=== PATIENT | female | born 1990 | race Caucasian/White ===

== ENCOUNTER 2017-09-06 05:33 | Inpatient (IN) | payer OTHER ==
[2017-08-30 15:32] VITALS: BMI 31.0
--- NOTE | 2017-08-30 15:55 | PAT Medication Instructions ---
Service Date Aug 30, 2017. Current Home Medication List Multivit/Min/Iron/Fol Ac/Pren ( Vitamin), 1 TAB PO DAILY Medication Instructions For Your Scheduled Surgery - Take the following medications as scheduled the night before surgery: Multivit/Min/Iron/Fol Ac/Pren ( Vitamin), 1 TAB PO DAILY NOTHING TO EAT OR DRINK AFTER MIDNIGHT If you have any questions please call us at [phone] or [phone] or [phone]
[2017-08-30 16:18] LABS: BASO % 0.1 %; BASO ABS # 0.01 K/uL (0-0.2); EOS % 1.3 %; EOS ABS # 0.11 K/uL (0-0.5); HEMATOCRIT 34.7 % (37-47); HEMOGLOBIN 11.7 g/dL (12.0-16.0); IG# 0.05 K/uL (0.00-0.02); LYMPH % 22.9 %; LYMPH ABS # 1.89 K/uL (1.2-3.4); MEAN CELL VOLUME 84.8 fL (80-100); MEAN CORPUSCULAR HEMOGLOBIN 28.6 pg (25-34); MEAN CORPUSCULAR HGB CONC 33.7 g/dl (32-36); MEAN PLATELET VOLUME 11.4 fL (7.4-10.4); MONO % 9.1 %; MONO ABS # 0.75 K/uL (0.11-0.59); NEUT ABS # 5.44 K/uL (1.4-6.5); PLATELET COUNT 151 K/uL (130-400); RED CELL DISTRIBUTION WIDTH CV 13.7 % (11.5-14.5); RED CELL DISTRIBUTION WIDTH SD 42.2 fL (36.4-46.3); WHITE BLOOD COUNT 8.25 K/uL (4.8-10.8)
--- NOTE | 2017-09-03 08:14 | HISTORY & PHYSICAL EXAMINATION ---
DATE OF ADMISSION: 09/06/2017 HISTORY OF PRESENT ILLNESS: Pamela is . This is her second term . She has 1 prior section and she is scheduled for repeat. Her due date is 09/11/2017 and her scheduled date is 09/06/2017, thus she will be up to 39 weeks. This has been uncomplicated. Her prior she had a section. At that time was an attempt at forceps and when she had this was a failed trial and then she had a and ultimately this resulted in uterine extension at the time of her prior section. PAST MEDICAL HISTORY: She is healthy. PAST SURGICAL HISTORY: Prior and also prior appendectomy. MEDICATIONS: None. DRUG ALLERGIES: PENICILLIN. SHE STATES HE GETS A RASH WITH THIS AND FEELS UNWELL. PHYSICAL EXAMINATION: VITAL SIGNS: Stable. She is afebrile. Weight is 190.2 pounds. CHEST: Clear. CARDIOVASCULAR: Normal rate and rhythm. No audible murmur. ABDOMEN: Gravid, symphysis fundal height term. heart rate tone is 136. CERVIX: At last check was 1 cm, 50%, -2. IMPRESSION AND PLAN: Discussed Repeat section. Discussed risks including but not limited to the risks of bleeding, infection, injury to bowel, bladder, ureter, vessels, deep vein thrombosis, pulmonary embolus and harm to the baby. Discussed with prior the extension that likely not appropriate but we did review this option. All questions were answered. We will make arrangements for a low segment transverse section.
[2017-09-06] VITALS (18 sets, daily range): BP systolic 95–101; BP diastolic 57–63; PULSE 64–74; TEMP 36.5–37.3; O2SAT 93–98; Ht 167.6 cm; Wt 86.4 kg
[~2017-09-06] VITALS: Ht 167.6 cm; Wt 86.4 kg
[~2017-09-06 05:33] MED LIST: GENTAMICIN CONSULT ACTIVE PRN; PRENTAB26 PO
[2017-09-06] MEDS ORDERED: GENTAMICIN INJ 130 MG in DEXTROSE 5% 100ML 100 ML IV SCH (06:00)
[2017-09-06] MEDS ORDERED: CLINDAMYCIN IV 900 MG in DEXTROSE 5% ADD-VANTAGE 100ML IV SCH (06:00)
[2017-09-06] MEDS ORDERED: CITRIC ACID/SODIUM CITRATE 15 ML UDC PO SCH (06:00)
[2017-09-06] MEDS ORDERED: LACTATED RINGER'S 1000ML 1,000 ML IV SCH ×2 (06:00→08:36)
[2017-09-06 06:07] LABS: BASO % 0.3 %; BASO ABS # 0.02 K/uL (0-0.2); EOS % 1.3 %; EOS ABS # 0.09 K/uL (0-0.5); HEMATOCRIT 34.9 % (37-47); HEMOGLOBIN 11.9 g/dL (12.0-16.0); IG# 0.03 K/uL (0.00-0.02); LYMPH % 28.8 %; LYMPH ABS # 1.95 K/uL (1.2-3.4); MEAN CELL VOLUME 83.7 fL (80-100); MEAN CORPUSCULAR HEMOGLOBIN 28.5 pg (25-34); MEAN PLATELET VOLUME 11.1 fL (7.4-10.4); MONO % 9.9 %; MONO ABS # 0.67 K/uL (0.11-0.59); NEUT % 59.3 %; NEUT ABS # 4.01 K/uL (1.4-6.5); PLATELET COUNT 143 K/uL (130-400); RED CELL DISTRIBUTION WIDTH CV 13.9 % (11.5-14.5); RED CELL DISTRIBUTION WIDTH SD 41.5 fL (36.4-46.3); WHITE BLOOD COUNT 6.77 K/uL (4.8-10.8)
[2017-09-06 06:50] LABS: MEAN CORPUSCULAR HGB CONC 34.1 g/dl (32-36)
--- NOTE | 2017-09-06 07:15 | History & Physical Bridge Note ---
H&P Re-Evaluation Bridge Note: I have examined the patient, reviewed the History & Physical and in the interval since the performance of the History & Physical I have noted the following changes of clinical significance: No changes noted
[2017-09-06] MEDS ORDERED: FENTANYL CITRATE INJ 50 MCG/1 ML 2 ML VIAL ONE (07:27)
[2017-09-06] MEDS ORDERED: MoRPHine SULFATE PF 1 MG/ML 10 ML AMP/VIAL ONE (07:27)
[2017-09-06] MEDS ORDERED: OXYTOCIN INJ 10 UNITS/ML VIAL ONE (07:33)
[2017-09-06] MEDS ORDERED: ONDANSETRON INJ 2 MG/ML 2 ML VIAL ONE (07:33)
[2017-09-06] MEDS ORDERED: PHENYLEPHRINE HCL INJ 10 MG/ML VIAL ONE (07:33)
[2017-09-06] MEDS ORDERED: LACTATED RINGER'S 1000ML 500 ML IV PRN (08:20)
[2017-09-06] MEDS ORDERED: NALOXONE HCL INJ 0.08 MG in SYRINGE 1.8 ML IV PRN (08:20)
[2017-09-06] MEDS ORDERED: NALOXONE HCL INJ 1 MG in SODIUM CHLORIDE 0.9% 1000ML 1,000 ML IV PRN (08:20)
[2017-09-06] MEDS ORDERED: SODIUM CHLORIDE 0.9% 1000ML 1,000 ML IV PRN (08:20)
[2017-09-06] MEDS ORDERED: ONDANSETRON INJ 2 MG/ML 2 ML VIAL IV PRN (08:30)
[2017-09-06] MEDS ORDERED: MEPERIDINE HCL 25 MG/ML CARP IV PRN (08:30)
[2017-09-06] MEDS ORDERED: NO NARCOTICS OR SEDATIVES SCH (08:30)
[2017-09-06] MEDS ORDERED: DiphenhydrAMINE HCL 50 MG/ML VIAL IV PRN (08:30)
[2017-09-06] MEDS ORDERED: NALBUPHINE HCL INJ 10 MG/ML AMP IV PRN (08:30)
[2017-09-06] MEDS ORDERED: MoRPHine SULFATE 2 MG/ML CARP IV PRN (08:30)
[2017-09-06] MEDS ORDERED: NALOXONE HCL 0.4 MG/1 ML VIAL/CARP IV PRN (08:30)
[2017-09-06] MEDS ORDERED: EpHEDrine SULFATE INJ 50 MG/ML AMP IV PRN (08:30)
[2017-09-06] MEDS ORDERED: KETOROLAC TROMETHAMINE 30 MG/ML VIAL IV. PRN ×2 (08:30→08:45)
[2017-09-06] MEDS ORDERED: MoRPHine SULFATE PF 1 MG/ML 10 ML AMP/VIAL EPI PRN (08:30)
--- NOTE | 2017-09-06 08:36 | [facility] Post Operative Brief Note ---
Immediate Operative Summary Operative Date Sep 06, 2017. Pre-Operative Diagnosis Term Repeat Caesarean Section Post-Operative Diagnosis Term Repeat Caesarean Section Procedure(s) Performed Term Repeat Caesarean Section for living female child at [address] Kruger Pier Master Surgeon(s) Dr. Foy Estimated Blood Loss 600 EBL Findings Consistent with Post-Op Diagnosis Specimens Placenta- hold cord blood arterial/venous cord gases Drains Richardson Anesthesia Type MAC Spinal Regional Complication(s) none Disposition Accompanied Pt To Recover: no Disposition: L&D
[2017-09-06] MEDS ORDERED: OXYCODONE/ACETAMINOPHEN 5-325 TAB PO PRN (08:45)
[2017-09-06] MEDS ORDERED: BENZOCAINE 20% AER SPR 82.5 GM CAN EXT PRN (08:45)
[2017-09-06] MEDS ORDERED: LANOLIN OINT EXT PRN (08:45)
[2017-09-06] MEDS ORDERED: MAGNESIUM HYDROXIDE SUSP 30 ML UDC PO PRN (08:45)
[2017-09-06] MEDS ORDERED: SENNA 8.6 MG TAB PO PRN (08:45)
[2017-09-06] MEDS ORDERED: HYDROCORTISONE ACETATE 25 MG SUPP PR PRN (08:45)
[2017-09-06] MEDS ORDERED: SUPERCREAM 0.870 % 15GM JAR EXT PRN (08:45)
[2017-09-06] MEDS ORDERED: PROMETHAZINE HCL INJ 25 MG in SODIUM CHLORIDE 0.9% 50ML 50 ML IV PRN (08:45)
[2017-09-06] MEDS: SIMETHICONE 80 MG CHEW PO SCH ×4 (09:00→20:34)
[2017-09-06] MEDS: OXYTOCIN INJ 20 UNITS in LACTATED RINGER'S 1000ML 1,000 ML IV SCH ×2 (09:14→16:55)
--- NOTE | 2017-09-06 09:31 | OPERATIVE REPORT ---
DATE OF OPERATION: 09/06/2017 PREOPERATIVE DIAGNOSIS: Term repeat low transverse section. POSTOPERATIVE DIAGNOSIS: Same. PROCEDURE: Repeat low segment transverse section. SURGEON: Dr. Kruger. CRM MARKETING ANALYST: Dr. Katy Foy. ESTIMATED BLOOD LOSS: 600 mL FINDINGS: Consistent with postoperative diagnosis. SPECIMENS: Placenta, cord blood. DRAINS: Richardson catheter. ANESTHETIC: Spinal. COMPLICATIONS: None. DISPOSITION: Labor and delivery. DESCRIPTION OF PROCEDURE: Pamela was given a spinal anesthetic, prepped and draped in supine position with a leftward tilt. Richardson catheter placed by nursing. Pickups with teeth were used to test the incision. Full timeout performed and IV antibiotics given preoperatively. Scalpel used to cut on the inferior edge of her keloid incision and the Pfannenstiel incision, dissecting down through subcutaneous fat to the fascia in the midline. Fascia dissected laterally with curved Sierra scissors. Fascia released superiorly and inferiorly with curved Mayos and then rectus muscle split and peritoneal cavity entered in a superior location. Peritoneal cavity opening enlarged to allow exposure. Bladder retractor placed. Metzenbaums used to dissect away the bladder flap. Bladder retractor repositioned. Scalpel used to make a low transverse incision on the uterus. Entry was done bluntly with the filteration operator's finger and then incision extended with the filteration operator's finger in the usual fashion. Fluid was clear. Baby's head was flexed and then pressure on the abdomen allowed delivery of the baby, there was no nuchal cord. Mouth and then nares were suctioned. Baby was delivered by gentle traction. No excessive force was used. Live vigorous female . Cord gases obtained by first clamping the cord and then cord blood obtained. Placenta removed. IV Pitocin started. Uterus exteriorized. We ensured all placental material was removed with a moist lap and then uterus closed in a running 0 Monocryl locked and a second reinforcing nonlocked 0 Monocryl layer, thus a 2-layer closure. At this stage, hemostasis was excellent. After generous irrigation and suction of the cul-de-sac and anterior bladder flap regions, hemostasis was excellent. Uterus had been placed back in the peritoneal cavity. Hemostasis was excellent. We injected the muscle layer with hemostatic and then fascia was closed with 0 Vicryl, subcutaneous fat irrigated and closed with 3-0 Vicryl. We did excise the keloid incision and then 4-0 subcuticular Monocryl closure and Steri-Strips. Sponge and instrument counts correct and urine was clear at the end of the procedure. I attest to the content of the Intraoperative Record and any orders documented therein. Any exception s are noted below.
--- NOTE | 2017-09-06 11:12 | Anesthesiology Progress Note ---
Anesthesia Post Op Note Date & Time Sep 06, 2017 at 11:12 Notes Mental Status: alert / awake / arousable, participated in evaluation Pt Amnestic to Procedure: Yes Nausea / Vomiting: adequately controlled Pain: adequately controlled Airway Patency, RR, SpO2: stable & adequate BP & HR: stable & adequate Hydration State: stable & adequate Neuraxial Anesthesia: was administered, sensory block is resolving Anesthetic Complications: no major complications apparent
--- NOTE | 2017-09-06 11:19 | Discharge Instructions ---
Discharge Instructions Date of Service Sep 06, 2017. Admission Reason for Admission: Previous Section Discharge Discharge Diagnosis / Problem: Discharge Goals Goal(s): Routine recovery after Medications Continue Dispensed Medications: supercream, dermaplast, tucks, lansinoh Activity Recommendations Activity Limitations: per Instructions/Follow-up section . Instructions / Follow-Up Instructions / Follow-Up ACTIVITY RECOMMENDATIONS: * Gradual return to full activity over the next 2-3 weeks. * No lifting - nothing heavier than baby over the next 2-3 weeks. * Do not engage in vigorous exercise, sexual activity or sports until cleared by your physician. * Do not drive or operate any motorized equipment until cleared by your physician. * You may shower/bathe daily. MEDICATIONS: For discomfort or pain, you may use Acetaminophen (Tylenol), Ibuprofen (Advil), or Naproxen (Aleve) following the package directions. For constipation you may use Colace following the package directions. BREAST CARE: If you are not breast feeding: * Wear a supportive bra 24 hours a day for one to two weeks. * Avoid stimulating your breasts and nipples as much as possible during the first few weeks after delivery. * When taking a shower, have the warm water hit your back, not breasts. * When your breasts feel full, apply ice packs. Usually three to four times a day helps ease the discomfort. * Take a mild pain medication (Tylenol / Motrin) when you are uncomfortable. If breast feeding: * Use breast milk to lubricate nipples. Lansinoh cream may be used for sore nipples. You do not need to remove cream prior to breast feeding. If using a different brand of cream, check the label for directions regarding removal of cream prior to nursing. * Wear a supportive bra. * If having problems with breasts or breast feeding, call a cosmetic consultant or your health care provider. SPECIAL CARE INSTRUCTIONS: When you are discharged from the hospital, it is important for you to follow the instructions listed below: * During the first week at home, you should be able to care for yourself and your baby. In addition, the usual light household activities are encouraged. * Limit your activities to the way you feel. Do not try to clean the house or move furniture. Be sensible. * If you actively engage in sports and have done so up until the time of your delivery, you may resume these activities as soon as you feel able. This may take up to one month or even longer. Use good judgment. * Continue to take your vitamins for at least six weeks after the of your baby. * Your diet need not be limited unless you were on a special diet before your delivery. Breast-feeding mothers need around 2500 calories per day and at least 64-80 ounces of fluid per day (8 to 10 glasses). * You should eat foods from the four major food groups. Crash diets or fad diets are to be avoided. Eating lean meats, fresh fruits and vegetables, low-fat dairy products, high fiber foods and a regular exercise program, will help you get back to your pre- weight without putting your health at risk. * Constipation is sometimes a problem after delivery. Take a mild laxative as needed. If breast feeding, Milk of Magnesia is acceptable to use. You may use a suppository or Fleets enema. * A daily shower or tub bath is suggested. Wash incision daily with warm soapy water and pat dry. It doesn't need to be covered unless drainage is present. * A bloody vaginal discharge will usually continue until around four weeks . A small amount of bleeding may continue for as long as six weeks. Vaginal discharge changes from the bright red bleeding after delivery to pink then brownish and finally yellowish-pink before becoming white and disappearing. * Bleeding may increase with activity. Your first period may come in 4-8 weeks. If you are breast feeding, your period may be delayed even longer. * [place] (sex) can begin whenever both you and your partner feel comfortable and do not have any form of genital infection. It is recommended that you wait at least six weeks for internal and external healing to occur. If you have questions, please talk to your health care practitioner. A condom should be used to prevent infection and . * Foreplay, gentle intercourse and lubrication is very important the first several times to prevent pain. A water-based lubricant such as K-Y jelly or Astroglide may be used. * If you have RH negative blood and your baby is RH positive, you will receive RHOGAM by injection prior to discharge. The nurse will give you a card to keep with you that has the date and place that you received RHOGAM after delivery. * During your care, you had a Rubella screen done to check for the presence of rubella antibodies in your blood. If your test was negative, you will receive a Rubella vaccine prior to discharge. This vaccine may cause a fever, soreness at the injection site and flu-like symptoms. If these symptoms persist, notify your health care practitioner. is not advised for one month after a Rubella vaccine. * Verbalizes understanding of car seat law as reviewed with patient nursing. * Car Seat hand-out given and reviewed with patient by nursing. * Shaken baby information reviewed with patient by nursing. Call you doctor if: * Heavy bleeding (saturating several pads an hour) or passing clots the size of your fist. * A fever >101 degrees F (38.3 degrees C) on two occasions four hours apart and /or chills. * Unusual pain in the pelvic or vaginal areas. * Call the doctor for any increased redness, drainage or swelling around the incision and any pain unrelieved by prescribed pain medication. * "Baby Blues" lasting longer than two weeks. If you have any questions or concerns, call your health care practitioner at . FOLLOW UP VISIT: * Please call the office at to schedule a 6 week examination. It is important you keep this appointment. It is important for you to make arrangements for either yearly or twice yearly check-ups thereafter. Current Hospital Diet Patient's current hospital diet: Discharge Diet Recommended Diet: Regular Diet Procedures Procedures Performed: Term Repeat Caesarean Section for living female child at 0802 Pending Studies Studies pending at discharge: no Medical Emergencies . Who to Call and When: Medical Emergencies: If at any time you feel your situation is an emergency, please call [phone] immediately. . Non-Emergent Contact Non-Emergency issues call your: Primary Care Provider . . "Provider Documentation" section prepared by Tom Wilson. . VTE Core Measure Inpt VTE Proph given/why not?: SCD's
[2017-09-06] MEDS: DOCUSATE SODIUM 100 MG CAP PO SCH (20:34)
[2017-09-07] VITALS (8 sets, daily range): BP systolic 95–105; BP diastolic 52–63; PULSE 71–79; TEMP 36.4–36.9; O2SAT 79–96
[2017-09-07] MEDS ORDERED: ONDANSETRON INJ 2 MG/ML 2 ML VIAL IV PRN (02:00)
[2017-09-07] MEDS ORDERED: MEPERIDINE HCL 50 MG/ML CARP IV PRN ×2 (02:00)
[2017-09-07] MEDS ORDERED: DiphenhydrAMINE HCL 50 MG/ML VIAL IV PRN (02:00)
[2017-09-07] MEDS ORDERED: DC INTRASPINAL MORPHINE SCH (02:00)
[2017-09-07] MEDS ORDERED: ZOLPIDEM TARTRATE 5 MG TAB PO PRN (02:00)
[2017-09-07] MEDS: IBUPROFEN 600 MG TAB PO PRN ×3 (02:23→23:34)
[2017-09-07] MEDS: OXYCODONE/ACETAMINOPHEN 5-325 TAB PO PRN ×3 (02:24→23:38)
--- NOTE | 2017-09-07 06:32 | Progress Note ---
Subjective Sep 07, 2017. Subjective conversation w/ patient (Patient seen and examined at bedside) Ambulation: limited ambulation Voiding: no voiding problems (catheter removed at 2AM - pt not voided at 6AM) Passing Gas: Yes Diet Tolerance: Regular Diet Lochia: Moderate Feeding Type: Breast Feeding Pain: 2/10, improved with analgesia Review of Systems Constitutional: No fever, No chills Respiratory: No shortness of breath Cardiac: No chest pain Breast: No breast pain Abdomen: No nausea, No vomiting Objective Vital Signs Date Time Temp Pulse Resp B/P (MAP) Pulse Ox O2 Delivery O2 Flow Rate FiO2 09/07/17 04:30 36.8 71 18 95/59 (71) Room Air 09/07/17 02:00 18 94 09/07/17 01:00 18 95 09/07/17 00:00 18 93 09/06/17 23:55 93 Room Air 09/06/17 23:55 37.3 72 18 98/58 (71) 93 Room Air 09/06/17 23:00 18 97 09/06/17 22:00 18 98 09/06/17 21:00 18 97 09/06/17 20:37 36.5 74 18 101/59 (73) 97 Room Air 09/06/17 20:00 18 97 09/06/17 19:00 18 98 09/06/17 18:00 16 95 Room Air 09/06/17 18:00 16 95 09/06/17 17:00 16 96 09/06/17 16:39 16 96 09/06/17 16:30 16 96 09/06/17 16:21 36.9 64 16 98/59 (72) 96 Room Air 09/06/17 16:00 96 Room Air 09/06/17 16:00 16 96 09/06/17 14:25 18 96 09/06/17 13:25 18 96 09/06/17 12:40 36.9 74 16 95/57 (70) 96 Room Air 09/06/17 12:25 16 96 09/06/17 11:25 96 Room Air 09/06/17 11:25 36.7 67 18 101/63 (76) 96 Room Air 09/06/17 11:25 96 Room Air 09/06/17 11:25 18 96 Physical Exam General Appearance: WELL-APPEARING, WD/WN, NO APPARENT DISTRESS Respiratory/Chest: lungs clear, normal breath sounds Cardiovascular: regular rate, rhythm Abdomen: soft Fundus: Firm, Tender, Relation to Umbilicus (1 below) Incision Description: Clean, Dry & Intact Extremities: no calf tenderness Laboratory Results Last 24 Hours Test 09/07/17 06:00 Medications Current Inpatient Medications Medications (Trade) Dose Ordered Sig/Kaden Route Start Time Stop Time Status Last Admin Dose Admin Oxytocin 20 units/ Lactated Ringer's 1,002 ml @ 125 mls/hr Q8H1M IV 09/06/17 09:00 10/06/17 08:59 09/06/17 16:55 125 MLS/HR Lactated Ringer's 1,000 ml @ 125 mls/hr Q8H IV 09/06/17 08:36 10/06/17 08:35 Ketorolac Tromethamine (Toradol Inj) 30 mg Q6H PRN IV. 09/06/17 08:45 09/11/17 08:44 Meperidine HCl (Demerol Inj) 50 mg Q4H PRN IV 09/07/17 02:00 09/21/17 01:59 Meperidine HCl (Demerol Inj) 75 mg Q4H PRN IV 09/07/17 02:00 09/21/17 01:59 Oxycodone/ Acetaminophen (Percocet 5-325mg Tab) `1-2 tabs for pain 1 tab ... Q4H PRN PO 09/07/17 02:00 09/21/17 01:59 09/07/17 02:24 2 TAB Ibuprofen (Motrin Tab) 600 mg Q4H PRN PO 09/06/17 08:45 10/06/17 08:44 09/07/17 02:23 600 MG Promethazine HCl 25 mg/Sodium Chloride 51 ml @ 204 mls/hr Q4H PRN IV 09/06/17 08:45 10/06/17 08:44 Ondansetron HCl (Zofran Inj) 4 mg Q4H PRN IV 09/07/17 02:00 10/07/17 01:59 Prenat Multivit/ Gis Database Administrator/Iron/Folic Ac ( Vitamin Tab) 1 tab DAILY PO 09/07/17 08:00 10/07/17 07:59 Bisacodyl (Dulcolax Tab) 5 mg HS ONCE PO 09/07/17 22:00 09/07/17 22:01 Bisacodyl (Dulcolax Supp) 10 mg PRN PRN VT 09/08/17 22:45 10/08/17 22:44 Docusate Sodium (coLACE CAP) 100 mg BID PO 09/06/17 20:00 10/06/17 19:59 09/06/17 20:34 100 MG Magnesium Hydroxide (Milk Of Magnesia Susp) 30 ml HS PRN PO 09/06/17 08:45 10/06/17 08:44 Cocaine HCl (Supercream 0.870% Cr) BID PRN EXT 09/06/17 08:45 09/20/17 08:44 Lanolin (Lanolin Oint) PRN PRN EXT 09/06/17 08:45 10/06/17 08:44 Hydrocortisone Acetate (Anusol Hc Supp) 25 mg BID PRN VT 09/06/17 08:45 10/06/17 08:44 Benzocaine (Dermoplast Aero Spr) 1 appln PRN PRN EXT 09/06/17 08:45 10/06/17 08:44 Zolpidem Tartrate (Ambien Tab) 5 mg HSZ PRN PO 09/07/17 02:00 10/07/17 01:59 Simethicone (Mylicon Chew Tab) 80 mg QID PO 09/06/17 09:00 10/06/17 08:59 09/06/17 20:34 80 MG Diphenhydramine HCl (Benadryl Cap) 25 mg QID PRN PO 09/07/17 02:00 10/07/17 01:59 Diphenhydramine HCl (Benadryl Inj) 25 mg QID PRN IV 09/07/17 02:00 10/07/17 01:59 Senna (Senokot Tab) 17.2 mg HS PRN PO 09/06/17 08:45 10/06/17 08:44 Assessment and Plan Post-Op Day#: 1 Continue Routine Care: 27 year old s/p elective repeat day 1 - pt doing well clinically - O+, Rubella immune, GBS -ve - vitals reviewed and wnl - Hgb 11.9, will assess today's level when labs available - continue to encourage ambulation, and analgesia prn Resident Physician Supervision Note: I interviewed and examined the patient. Discussed with Dr. Santos and agree with findings and plan as documented in the note. Any exceptions or clarifications are listed here: [None] Documented By: Bam Kruger Resident Tracking Resident Involvement: Resident Care Provided Care Provided: OB Delivery
[2017-09-07 07:21] LABS: BASO % 0.1 %; BASO ABS # 0.01 K/uL (0-0.2); EOS % 0.8 %; EOS ABS # 0.07 K/uL (0-0.5); HEMATOCRIT 31.3 % (37-47); HEMOGLOBIN 10.4 g/dL (12.0-16.0); IG# 0.02 K/uL (0.00-0.02); LYMPH % 19.7 %; LYMPH ABS # 1.69 K/uL (1.2-3.4); MEAN CELL VOLUME 84.8 fL (80-100); MEAN CORPUSCULAR HEMOGLOBIN 28.2 pg (25-34); MEAN CORPUSCULAR HGB CONC 33.2 g/dl (32-36); MEAN PLATELET VOLUME 11.7 fL (7.4-10.4); MONO % 10.4 %; MONO ABS # 0.89 K/uL (0.11-0.59); NEUT % 68.8 %; NEUT ABS # 5.88 K/uL (1.4-6.5); PLATELET COUNT 117 K/uL (130-400); RED CELL DISTRIBUTION WIDTH SD 42.6 fL (36.4-46.3); WHITE BLOOD COUNT 8.56 K/uL (4.8-10.8)
[2017-09-07] MEDS: DOCUSATE SODIUM 100 MG CAP PO SCH ×2 (08:14→20:08)
[2017-09-07] MEDS: SIMETHICONE 80 MG CHEW PO SCH ×4 (08:14→20:08)
[2017-09-07] MEDS: PRENATAL VITAMIN TAB PO SCH (08:14)
[2017-09-07] MEDS ORDERED: BISACODYL 5 MG TABEC PO ONE (22:00)
--- NOTE | 2017-09-08 06:19 | Progress Note ---
Subjective Sep 08, 2017. Subjective conversation w/ patient (Patient seen and examined at bedside) Ambulation: ambulating normally Voiding: no voiding problems Passing Gas: Yes Diet Tolerance: Regular Diet Lochia: Moderate Feeding Type: Breast Feeding Pain: 2/10, localized to incision and improved w/analgesia Review of Systems Constitutional: No fever Respiratory: No shortness of breath Cardiac: No chest pain Abdomen: No pain Female : No dysuria Objective Vital Signs Date Time Temp Pulse Resp B/P (MAP) Pulse Ox O2 Delivery O2 Flow Rate FiO2 09/07/17 23:35 36.5 18 105/52 (69) 96 Room Air 09/07/17 23:35 96 Room Air 09/07/17 20:00 79 20 100/54 (69) 79 Room Air 09/07/17 16:55 36.9 76 20 98/59 (72) 09/07/17 08:20 Room Air 09/07/17 08:20 36.4 78 20 98/63 (75) Physical Exam General Appearance: WELL-APPEARING, WD/WN, NO APPARENT DISTRESS Respiratory/Chest: lungs clear, normal breath sounds Cardiovascular: regular rate, rhythm Abdomen: non tender Fundus: Firm, Tender, Relation to Umbilicus (1 below) Incision Description: Clean, Dry & Intact Extremities: no calf tenderness Laboratory Results Last 24 Hours Test 09/07/17 06:38 09/08/17 06:00 White Blood Count 8.56 K/uL Red Blood Count 3.69 M/uL Hemoglobin 10.4 g/dL Hematocrit 31.3 % Mean Corpuscular Volume 84.8 fL Mean Corpuscular Hemoglobin 28.2 pg Mean Corpuscular Hemoglobin Concent 33.2 g/dl Platelet Count 117 K/uL Mean Platelet Volume 11.7 fL Neutrophils (%) (Auto) 68.8 % Lymphocytes (%) (Auto) 19.7 % Monocytes (%) (Auto) 10.4 % Eosinophils (%) (Auto) 0.8 % Basophils (%) (Auto) 0.1 % Neutrophils # (Auto) 5.88 K/uL Lymphocytes # (Auto) 1.69 K/uL Monocytes # (Auto) 0.89 K/uL Eosinophils # (Auto) 0.07 K/uL Basophils # (Auto) 0.01 K/uL RDW Standard Deviation 42.6 fL RDW Coefficient of Variation 14.0 % Immature Granulocyte % (Auto) 0.2 % Immature Granulocyte # (Auto) 0.02 K/uL Medications Current Inpatient Medications Medications (Trade) Dose Ordered Sig/Kaden Route Start Time Stop Time Status Last Admin Dose Admin Oxytocin 20 units/ Lactated Ringer's 1,002 ml @ 125 mls/hr Q8H1M IV 09/06/17 09:00 10/06/17 08:59 09/06/17 16:55 125 MLS/HR Lactated Ringer's 1,000 ml @ 125 mls/hr Q8H IV 09/06/17 08:36 10/06/17 08:35 Ketorolac Tromethamine (Toradol Inj) 30 mg Q6H PRN IV. 09/06/17 08:45 09/11/17 08:44 Meperidine HCl (Demerol Inj) 50 mg Q4H PRN IV 09/07/17 02:00 09/21/17 01:59 Meperidine HCl (Demerol Inj) 75 mg Q4H PRN IV 09/07/17 02:00 09/21/17 01:59 Oxycodone/ Acetaminophen (Percocet 5-325mg Tab) `1-2 tabs for pain 1 tab ... Q4H PRN PO 09/07/17 02:00 09/21/17 01:59 09/07/17 23:38 1 TAB Ibuprofen (Motrin Tab) 600 mg Q4H PRN PO 09/06/17 08:45 10/06/17 08:44 09/07/17 23:34 600 MG Promethazine HCl 25 mg/Sodium Chloride 51 ml @ 204 mls/hr Q4H PRN IV 09/06/17 08:45 10/06/17 08:44 Ondansetron HCl (Zofran Inj) 4 mg Q4H PRN IV 09/07/17 02:00 10/07/17 01:59 Prenat Multivit/ [place]/Iron/Folic Ac ( Vitamin Tab) 1 tab DAILY PO 09/07/17 08:00 10/07/17 07:59 09/07/17 08:14 1 TAB Bisacodyl (Dulcolax Supp) 10 mg PRN PRN CO 09/08/17 22:45 10/08/17 22:44 Docusate Sodium (coLACE CAP) 100 mg BID PO 09/06/17 20:00 10/06/17 19:59 09/07/17 20:08 100 MG Magnesium Hydroxide (Milk Of Magnesia Susp) 30 ml HS PRN PO 09/06/17 08:45 10/06/17 08:44 Cocaine HCl (Supercream 0.870% Cr) BID PRN EXT 09/06/17 08:45 09/20/17 08:44 Lanolin (Lanolin Oint) PRN PRN EXT 09/06/17 08:45 10/06/17 08:44 Hydrocortisone Acetate (Anusol Hc Supp) 25 mg BID PRN CO 09/06/17 08:45 10/06/17 08:44 Benzocaine (Dermoplast Aero Spr) 1 appln PRN PRN EXT 09/06/17 08:45 10/06/17 08:44 Zolpidem Tartrate (Ambien Tab) 5 mg HSZ PRN PO 09/07/17 02:00 10/07/17 01:59 Simethicone (Mylicon Chew Tab) 80 mg QID PO 09/06/17 09:00 10/06/17 08:59 09/07/17 20:08 80 MG Diphenhydramine HCl (Benadryl Cap) 25 mg QID PRN PO 09/07/17 02:00 10/07/17 01:59 Diphenhydramine HCl (Benadryl Inj) 25 mg QID PRN IV 09/07/17 02:00 10/07/17 01:59 Senna (Senokot Tab) 17.2 mg HS PRN PO 09/06/17 08:45 10/06/17 08:44 Assessment and Plan Post-Op Day#: 2 Continue Routine Care: 27 year old s/p elective repeat day 2 - pt doing well clinically - O+, Rubella immune, GBS -ve - vitals reviewed and wnl - Hgb 11.7 -> 10.4 - continue to encourage ambulation, and analgesia prn Resident Physician Supervision Note: I interviewed and examined the patient. Discussed with Dr. Wilson and agree with findings and plan as documented in the note. Any exceptions or clarifications are listed here: [None] Documented By: Nasra Black Resident Tracking Resident Involvement: Resident Care Provided Care Provided: OB Delivery
[2017-09-08 07:25] VITALS: BP 102/65; PULSE 78; TEMP 37; O2SAT 97
[2017-09-08 07:58] LABS: HEMATOCRIT 31.7 % (37-47); HEMOGLOBIN 10.6 g/dL (12.0-16.0)
[2017-09-08] MEDS: DOCUSATE SODIUM 100 MG CAP PO SCH (08:09)
[2017-09-08] MEDS: SIMETHICONE 80 MG CHEW PO SCH ×2 (08:10→12:34)
[2017-09-08] MEDS: PRENATAL VITAMIN TAB PO SCH (08:11)
[2017-09-08] MEDS: IBUPROFEN 600 MG TAB PO PRN ×2 (08:12→15:10)
[2017-09-08] MEDS: OXYCODONE/ACETAMINOPHEN 5-325 TAB PO PRN ×2 (08:13→15:10)
[2017-09-08] MEDS ORDERED: MTR600X PO (14:33)
[2017-09-08] MEDS ORDERED: OXYC-57 PO (14:33)
--- NOTE | 2017-09-08 14:35 | Progress Note ---
Progress Note Date of Service Sep 08, 2017. Progress Note Patient doing well and requests discharge per nurse. she was apparently wanting this discharge this am but peds was not ready to let baby go but now they are. She was checked on pa pdmp and no issues identified.
[2017-09-08 15:30] VITALS: BP_DIAS 65; PULSE 78; TEMP 37
[2017-09-08] MEDS ORDERED: BISACODYL 10 MG SUPP PR PRN (22:45)
== END 2017-09-08 15:47 | disposition home or self-care (01) | DRG 766 ==
LOC: C.LD 05:33 → EDSTATUS 07:30 → C.OBG 11:42
PROVIDERS: ADMIT Obstetrics & Gynecology; ATTEND Obstetrics & Gynecology
PROC: 10D00Z1 Extraction of Products of Conception, Low, Open Approach (ICD-10-PCS; principal; 2017-09-06 07:30)
DX: O34.219 Maternal care for unspecified type scar from previous cesarean delivery (principal); Z3A.39 39 weeks gestation of pregnancy; Z37.0 Single live birth

== ENCOUNTER 2019-04-24 07:57 | Inpatient (IN) ==
--- NOTE | 2019-04-21 08:46 | History & Physical Report ---
Date of Service April 21, 2019 2 prior sections and requests repeat. prior extension, not a candidate. Uncomplicated poregnancy Assessment & Plan (1) History of : Repeat section. The patient was counseled to the nature of the procedure including alternatives such as labor. Risks were discussed including bleeding infection injury to bowel bladder ureter vessels and even baby. The risks of internal organ injury were discussed as being higher with prior sections. Deep Vein Thrombosis, pulmonary embolus and breakdown of the incision discussed. Deep vein thrombosis pulmonary embolus hernia and failure of the incision to heal were discussed Patient verbalized understanding of this and was given ample time to ask questions History of Present Illness Primary Care Provider: Stefano Crow, JOLEEN, CIO Allergies Allergy/AdvReac Type Severity Reaction Status Date / Time Penicillins Allergy Severe ANAPHYLAXIS Verified 04/20/19 13:12 Home Medications Home Medications Medication Instructions Recorded Confirmed Type pediatric multivitamin no.136 tab PO tab 02/21/19 04/20/19 History chewable tablet Patient History Social History Smoking Status: Never smoker Physical Exam Constitutional: WD/WN, vitals as above Respiratory: normal respiratory effort, lungs clear to auscultation Cardiovascular: RRR, no murmur, no edema Gastrointestinal (Abdomen): normal bowel sounds, soft, nontender, no hepatosplenomegaly Genitourinary: Speculum/Bimanual Exam: normal appearance of the vagina OB Exam Abdomen: + fundal height (Term), + heart tones (Pos) and + vertex
[~2019-04-24 07:57] MED LIST changes: +CITRIC ACID/SODIUM CITRATE 15 ML UDC PO SCH; +CLINDAMYCIN 900 MG in DEXTROSE 5% 50 ML IV SCH; -GENTAMICIN CONSULT ACTIVE PRN; +LACTATED RINGER'S 1,000 ML IV SCH; -PRENTAB26 PO
[2019-04-24 08:57] LABS: Basophils # (auto) 0.01 K/uL (0-0.2); Basophils % (auto) 0.1 %; Eosinophils # (auto) 0.07 K/uL (0-0.5); Hematocrit (blood only) 32.5 % (37-47); Hemoglobin 10.5 g/dL (12.0-16.0); Immature Granulocytes # (auto) 0.02 K/uL (0.00-0.02); Immature Granulocytes % (auto) 0.3 %; Lymphocytes # (auto) 1.85 K/uL (1.2-3.4); Lymphocytes % (auto) 25.4 %; Mean Corpuscular Hemoglobin 27.1 pg (25-34); Mean Platelet Volume 11.6 fL (7.4-10.4); Monocytes # (auto) 0.65 K/uL (0.11-0.59); Monocytes % (auto) 8.9 %; Neutrophils # (auto) 4.68 K/uL (1.4-6.5); Neutrophils % (auto) 64.3 %; Platelet Count 135 K/uL (130-400); RDW Coefficient of Variation 13.9 % (11.5-14.5); RDW Standard Deviation 41.7 fL (36.4-46.3); Red Blood Count 3.87 M/uL (4.2-5.4); White Blood Count 7.28 K/uL (4.8-10.8)
[2019-04-24 09:03] LABS: Mean Corpuscular Hgb Conc 32.3 g/dL (32-36)
[2019-04-24] MEDS ORDERED: LACTATED RINGER'S 1,000 ML IV ONE (09:21)
--- NOTE | 2019-04-24 09:55 | Anesthesiology Consultation ---
Date of Service April 24, 2019 Assessment & Plan Chart Review Chart Review: Acceptable Risk for Surgery and Patient NOT seen in Pre Admission Testing Consults Requested none ASA ASA2 Proposed Anesthesia Anesthesia Type: Spinal Risk / Benefits Reviewed With: PT / POA / Parent / Guardian, Accepts Plan and Informed Consent Obtained History Surgery Operation Date: 04/24/19 10:20 Proposed Procedures p Section in LD - J. Darrick Kruger MD, FACOG Height/Weight Height: 5 ft 7 in Weight: 86.183 kg Allergies Allergy/AdvReac Type Severity Reaction Status Date / Time Penicillins Allergy Severe ANAPHYLAXIS Verified 04/21/19 13:44 Medications Home Medications Medication Instructions Recorded Confirmed Last Taken PNV cmb#95-ferrous fumarate-FA 1 tab PO DAILY 04/21/19 04/24/19 04/19/19 18:00 [] Active Medications Generic Name Dose Route Start Last Admin Trade Name Freq PRN Reason Stop Dose Admin Lactated Ringer's 1,000 mls @ 999 mls/hr 04/24/19 09:21 04/24/19 09:05 Lr IV 04/24/19 10:21 999 mls/hr .Q1H1M ONE Administration NPO Date Last Intake of Fluids: 04/23/19 Time Last Intake of Fluids: 21:30 Date Last Intake of Solids: 04/23/19 Time Last Intake of Solids: 19:30 Past Medical History Medical History History of miscarriage Exercise / Class Metabolic Activity II 4-5 Yardwork/Stairs/Walk up hill Negative for chest pain or shortness of breath. Past Family History Family History Grandmother (Maternal) Lung cancer Grandfather (Paternal) Heart disease Dyslipidemia Mother Ovarian cyst Sister Ovarian cyst Father Dyslipidemia Past Surgical History Surgical History History of X 2 Nausea and vomiting after administration of anesthetic agent [place] teeth removed S/P appendectomy S/P hernia repair INGUINAL S/P wisdom tooth extraction Past Anesthesia History No Hx of Anesthesia Complications (PONV) History of PONV No Hx of Motion Sickness and History of PONV Social History Smoking Status: Never smoker Do You Dip or Chew Tobacco: No Hx Alcohol Use: Yes (when not ) Alcohol type: wine alcohol intake frequency: a few times a month Hx Substance Use: No substance use type: does not use Review of Systems Patient denies active symptoms of GERD. Patient denies numbness, tingling or weakness in lower extremities. Patient denies history of abnormal bleeding or bleeding disorder. Patient denies active use of anticoagulants other than low dose aspirin. Physical Exam Vital Signs Last Vital Signs Temp 37.0 C 04/24/19 08:03 Pulse 89 04/24/19 08:57 Resp 18 04/24/19 08:03 BP 106/59 L 04/24/19 08:57 Constitutional not obese gravid uterus ENMT Mouth: no TMJ abnormality and oral opening not small Thyromental Distance: > or= 3.5 Finger Breadths Mallampati Class: I Neck normal visual inspection; neck extension not limited Respiratory normal respiratory effort Auscultation: lungs clear to auscultation bilaterally Cardiovascular Rate/Rhythm: regular rate and regular rhythm Heart Sounds: no murmur Neurologic moves all extremities Motor/Sensory: no sensory deficit Psychiatric Orientation: alert and oriented x 3 Testing Laboratory Results 04/24/19 08:29 Blood Type O Positive 04/24/19 08:24 Antibody Screen NEGATIVE 04/24/19 08:24
[2019-04-24] MEDS: LACTATED RINGER'S 1,000 ML IV SCH (10:08)
--- NOTE | 2019-04-24 11:10 | History & Physical Bridge Note ---
Date of Service April 24, 2019 History & Physical Bridge Note I have examined the patient, reviewed the History & Physical and in the interval since the performance of the History & Physical I have noted the following changes of clinical significance: no changes noted
[2019-04-24] MEDS ORDERED: HYDROmorphone INJ 0.5 MG/0.5 ML SYR IV PRN (11:23)
[2019-04-24] MEDS ORDERED: ePHEDrine sulfate 50 MG/ML AMP IV PRN (11:23)
[2019-04-24] MEDS ORDERED: KETOROLAC 30 MG/ML VIAL IV PRN (11:23)
[2019-04-24] MEDS ORDERED: DiphenhydrAMINE HCL 50 MG/ML VIAL IV PRN (11:23)
[2019-04-24] MEDS ORDERED: NALOXONE HCL 0.08 MG in SYRINGE 1.8 ML IV PRN (11:23)
[2019-04-24] MEDS ORDERED: LACTATED RINGER'S 500 ML IV PRN (11:23)
[2019-04-24] MEDS ORDERED: ACETAMINOPHEN 1000 MG/100 ML IV IV PRN (11:23)
[2019-04-24] MEDS ORDERED: MoRPHine SULFATE PF 1 MG/ML 10 ML AMP/VIAL INT SPINAL ONE (11:23)
[2019-04-24] MEDS ORDERED: NALOXONE HCL 0.4 MG/1 ML VIAL/CARP IV PRN (11:23)
[2019-04-24] MEDS ORDERED: ONDANSETRON INJ 2 MG/ML 2 ML VIAL IV PRN (11:23)
[2019-04-24] MEDS ORDERED: NALOXONE HCL 1 MG in SODIUM CHLORIDE 0.9% 1000ML 1,000 ML IV PRN (11:23)
[2019-04-24] MEDS ORDERED: SODIUM CHLORIDE 0.9% 1000ML 1,000 ML IV SCH (11:30)
[2019-04-24] MEDS ORDERED: NO NARCOTICS OR SEDATIVES SCH (11:30)
[2019-04-24] MEDS ORDERED: DC INTRASPINAL MORPHINE SCH (11:30)
[2019-04-24] MEDS ORDERED: fentaNYL citrate 100 MCG/2 ML VIAL ONE (11:32)
[2019-04-24] MEDS ORDERED: MoRPHine SULFATE PF 1 MG/ML 10 ML AMP/VIAL ONE (11:32)
[2019-04-24] MEDS ORDERED: PHENYLEPHRINE HCL 10 MG/ML VIAL ONE (11:37)
[2019-04-24] MEDS ORDERED: ONDANSETRON INJ 2 MG/ML 2 ML VIAL ONE (11:41)
[2019-04-24] MEDS ORDERED: OXYTOCIN 10 UNITS/ML VIAL ONE (11:41)
[2019-04-24] MEDS ORDERED: ePHEDrine sulfate 50 MG/ML SYR ONE (13:35)
--- NOTE | 2019-04-24 13:57 | Operative Report ---
PG Post Operative Report Pre & Post Diagnosis Operation Date: 04/24/19 10:20 Pre-Op Diagnosis: History of Section;Desires Repeat Post-Op Diagnosis: Same; Delivery of a live male child at 1326 Procedure Operation Date: 04/24/19 10:20 Actual Procedures p Section in LD - Jovi Kruger MD, FACOG Surgeon Jovi Kruger MD, FACOG Back Joiner Dr. Black Estimated Blood Loss 500 Findings Consistent with Post-Op Diagnosis Specimens Cord gases, cord blood Description of Procedure Patient given a spinal anesthetic by anesthesia Richardson catheter inserted by nursing prepped and draped in supine position with a leftward tilt prepped and draped IV antibiotics given skin area tested with pickups with teeth and found to be adequate for incision scalpel used over the prior Pfannenstiel incision cutting down through subcutaneous fat through the fascia in the midline curved Sierra scissors used to cut the fascia laterally then released the fascia superiorly and inferiorly from the rectus muscles peritoneal cavity opened in a superior location and then opening enlarged to allow exposure bladder retractor placed Metzenbaums used to dissect away the bladder flap low transverse incision made on the uterus with the scalpel entry was done bluntly with the drone operator's fingers hysterotomy site then enlarged to allow delivery baby was in vertex position we did require the vacuum to fully elevate the head out of the uterus along with pressure from the nurse's assistant back and then detached live vigorous infant cord clamped and cut cord gases obtained cord blood obtained placenta removed manually uterus exteriorized IV Pitocin started uterine tone was excellent we ensured all placenta removed uterus closed in the usual fashion running 0 Monocryl layer and a second reinforced nonlocked 0 Monocryl layer of the adnexa were visualized these were normal. After irrigation and suction of the cul-de-sac with normal saline we then placed uterus back in the peritoneal cavity and visualized the incision line hemostasis was excellent Retractor removed rectus muscles inspected found to be hemostatic fascia closed with 0 Vicryl to subtendinous fat irrigated and closed with 3-0 Vicryl skin closed with 4 oh subcuticular or Monocryl Steri-Strips applied urine clear at the end of the procedure I attest to the content of the Intraoperative Record and any orders documented therein. Any exceptions are noted below.
[2019-04-24 14:07] LABS: Base Excess Cord Arterial Bld -7.2 mEq/L (-9-1.8); CO2 Cord Arterial Blood 43 mmHg (39.1-73.5); HCO3 Cord Arterial Blood 19 mmol/L (19.7-28.5); PO2 Cord Arterial Blood 19.5 % (4.1-31.7); pH Cord Arterial Blood 7.27 (7.1-7.38)
[2019-04-24 14:11] LABS: Base Excess Cord Venous Blood -6.2 mEq/L (-7.7-1.9); Cord Venous Blood HCO3 20 mmol/L (18.4-26.8); Cord Venous Blood PCO2 39 mmHg (30.4-57.2); Cord Venous Blood PO2 84 mmHg (14.1-43.3); Cord Venous Blood pH 7.32 (7.20-7.44); O2 Saturation Cord Venous Bld < 60.0 % (<68); Oxygen Sat Cord Arterial Blood < 60.0 % (<60)
[2019-04-24] MEDS: NALBUPHINE HCL INJ 10 MG/ML AMP IV PRN ×2 (14:20→17:35)
[2019-04-24] MEDS ORDERED: OXYTOCIN 20 UNITS in LACTATED RINGER'S 1,000 ML IV SCH ×2 (16:00→18:32)
--- NOTE | 2019-04-24 16:37 | Anesthesiology Progress Note ---
Date of Service April 24, 2019 Anesthesia Post Procedure Vital Signs Vital Signs: Temp Pulse Resp BP Pulse Ox 04/24/19 16:31 100 H 94 04/24/19 16:26 99 H 95 04/24/19 16:21 96 H 96 04/24/19 16:16 104 H 98 04/24/19 16:11 92 H 94 04/24/19 16:06 90 94 04/24/19 16:01 72 94 04/24/19 15:58 85 88/50 L 04/24/19 15:56 76 97 04/24/19 15:51 77 93 04/24/19 15:48 89 100/55 L 04/24/19 15:46 102 H 96 04/24/19 15:41 98 H 93 04/24/19 15:38 90 97/49 L 04/24/19 15:36 96 H 94 04/24/19 15:31 95 H 94 04/24/19 15:28 85 129/63 04/24/19 15:26 96 H 97 04/24/19 15:21 88 94 04/24/19 15:17 91 H 121/60 04/24/19 15:16 95 H 98 04/24/19 15:11 78 95 04/24/19 15:09 87 109/59 L 04/24/19 15:06 82 97 04/24/19 15:01 81 96 04/24/19 14:58 77 103/55 L 04/24/19 14:56 83 93 04/24/19 14:51 82 94 04/24/19 14:47 79 103/58 L 04/24/19 14:46 78 95 04/24/19 14:45 72 88 L 04/24/19 14:41 74 96 04/24/19 14:37 68 99/57 L 04/24/19 14:36 71 88 L 04/24/19 14:34 79 87 L 04/24/19 14:31 83 95 04/24/19 14:28 80 88/54 L 04/24/19 14:26 79 95 04/24/19 14:21 88 95 04/24/19 14:20 87 102/53 L 04/24/19 14:18 86 94 04/24/19 14:16 86 94 04/24/19 14:13 86 94 04/24/19 14:11 89 92 04/24/19 14:06 83 93 04/24/19 14:02 83 93/47 L 04/24/19 14:01 90 93 04/24/19 14:00 36.6 C 16 04/24/19 12:44 37.1 C 75 18 100/59 L 04/24/19 10:02 80 105/61 04/24/19 08:57 89 106/59 L 04/24/19 08:03 37.0 C 18 Transfer of Care Handoff Completed per policy Notes Mental Status: alert / awake / arousable and participated in evaluation Nausea / Vomiting: adequately controlled Pain: adequately controlled Airway Patency, RR, SpO2: stable & adequate BP & HR: stable & adequate Hydration State: stable & adequate Neuraxial Anesthesia: was administered and sensory block is resolving Anesthetic Complications: no major complications apparent and Pt Satisfied with anesthetic care
[2019-04-24] MEDS ORDERED: SENNA 8.6 MG TAB PO PRN (18:32)
[2019-04-24] MEDS ORDERED: SUPERCREAM 0.870% 15 GM JAR EXT PRN (18:32)
[2019-04-24] MEDS ORDERED: MAGNESIUM HYDROXIDE SUSP 30 ML UDC PO PRN (18:32)
[2019-04-24] MEDS ORDERED: DIPHTHERIA/TETANUS/PERTUSSIS 0.5 ML SYR/VIAL IM ONE (18:32)
[2019-04-24] MEDS ORDERED: BENZOCAINE 20% AER SPR 82.5 GM CAN EXT PRN (18:32)
[2019-04-24] MEDS ORDERED: HYDROCORTISONE ACETATE 25 MG SUPP PR PRN (18:32)
[2019-04-24] MEDS: DOCUSATE SODIUM 100 MG CAP PO SCH (20:56)
[2019-04-24] MEDS: SIMETHICONE 80 MG CHEW PO SCH (20:57)
[2019-04-25] MEDS: LACTATED RINGER'S 1,000 ML IV SCH (00:41)
[2019-04-25] MEDS ORDERED: ZOLPIDEM TARTRATE 5 MG TAB PO PRN (05:23)
[2019-04-25] MEDS ORDERED: KETOROLAC 30 MG/ML VIAL IV PRN (05:23)
[2019-04-25] MEDS ORDERED: ONDANSETRON INJ 2 MG/ML 2 ML VIAL IV PRN (05:23)
[2019-04-25] MEDS ORDERED: MEPERIDINE HCL 50 MG/ML CARP IV PRN (05:23)
[2019-04-25] MEDS ORDERED: PROMETHAZINE HCL 25 MG in SODIUM CHLORIDE 0.9% 50 ML IV PRN (05:23)
[2019-04-25] MEDS ORDERED: DiphenhydrAMINE HCL 50 MG/ML VIAL IV PRN (05:23)
[2019-04-25 06:38] LABS: Basophils # (auto) 0.01 K/uL (0-0.2); Basophils % (auto) 0.1 %; Eosinophils # (auto) 0.04 K/uL (0-0.5); Eosinophils % (auto) 0.5 %; Hematocrit (blood only) 28.7 % (37-47); Hemoglobin 9.3 g/dL (12.0-16.0); Immature Granulocytes # (auto) 0.02 K/uL (0.00-0.02); Immature Granulocytes % (auto) 0.2 %; Lymphocytes # (auto) 1.27 K/uL (1.2-3.4); Lymphocytes % (auto) 14.3 %; Mean Corpuscular Hemoglobin 27.5 pg (25-34); Mean Corpuscular Hgb Conc 32.4 g/dL (32-36); Mean Corpuscular Volume 84.9 fL (80-100); Monocytes # (auto) 1.07 K/uL (0.11-0.59); Monocytes % (auto) 12.1 %; Neutrophils # (auto) 6.46 K/uL (1.4-6.5); Neutrophils % (auto) 72.8 %; Platelet Count 113 K/uL (130-400); RDW Coefficient of Variation 14.1 % (11.5-14.5); RDW Standard Deviation 43.2 fL (36.4-46.3); Red Blood Count 3.38 M/uL (4.2-5.4); White Blood Count 8.87 K/uL (4.8-10.8)
--- NOTE | 2019-04-25 06:42 | Obstetrical Progress Note ---
Date of Service April 25, 2019 Assessment & Plan (1) Encounter for care and examination after delivery: 28 yo F POD #1 following delivery at 39w3d, with some lower abdominal pain otherwise doing well. C section delivery - POD #1 - Pain controlled with PRN pain medications however pt has not taken recently due to sleeping. - Will continue routine care. - Following d/c will have f/u in 6 weeks. - Blood type O+, Rubella immune. Jamila Santiago is a 28 yo female ; POD # 1 following section delivery at 39w3d; doing well this AM; some pain this morning which is improved with PRN pain medications. Still has hernandez, has not yet ambulated at this time. 24 Hour I/Os: Intake: 3006mL Output: 1200mL Review of Systems Constitutional: denies fever, chills, sweats, headache Respiratory: denies SOB, difficulty breathing Cardiac: denies CP, chest palpitations, chest pressure Breast: denies breast pain : denies dysuria Physical Exam General: patient is alert and oriented, in NAD Cardiac: +S1/S2, no murmurs rubs or gallops Respiratory: lungs CTA b/l, anteriorly and posteriorly, no wheezes rales or rhon chi, no increased work of breathing, symmetric chest rise, no respiratory distress Abdomen: soft, NT, +bowel sounds Uterus: uterine fundus firm and palpable below the level of the umbilicus. Incision intact, non-tender, non-erythematous, no weeping from incision site Lower Extremities: no LE edema or swelling, no deep calf pain, Naman's sign negative b/l Results & Data Vital Signs (Past 12 Hours) Vital Signs Temp Pulse Resp BP Pulse Ox 04/25/19 06:00 16 98 04/25/19 05:00 16 97 04/25/19 04:00 36.5 C 87 16 138/84 98 04/25/19 03:00 14 97 04/25/19 02:00 14 95 04/25/19 01:00 16 95 04/25/19 00:00 16 97 04/24/19 21:30 16 94 04/24/19 20:15 18 04/24/19 19:15 18 94 Laboratory Results Laboratory Results - last 24 hr 04/24/19 04/24/19 04/24/19 08:24 08:29 13:26 WBC 7.28 RBC 3.87 L Hgb 10.5 L Hct 32.5 L MCV 84.0 MCH 27.1 MCHC 32.3 RDW Std Deviation 41.7 RDW Coeff of Lakesha 13.9 Plt Count 135 MPV 11.6 H Immature Gran % (Auto) 0.3 Neut % (Auto) 64.3 Lymph % (Auto) 25.4 Cuming % (Auto) 8.9 Eos % (Auto) 1.0 Baso % (Auto) 0.1 Immature Gran # (Auto) 0.02 Neut # (Auto) 4.68 Lymph # (Auto) 1.85 [place]uming # (Auto) 0.65 H Eos # (Auto) 0.07 Baso # (Auto) 0.01 Cord ABG pH Cord ABG pCO2 Cord ABG pO2 Cord ABG HCO3 Cord ABG Base Excess Cord ABG O2 Sat Cord VBG pH 7.32 Cord VBG pCO2 39 Cord VBG pO2 84 H Cord VBG HCO3 20 Cord VBG Base Excess -6.2 Cord VBG O2 Sat < 60.0 Barometric Pressure 736.9 Blood Gas Comments KENYON Blood Type O Positive Antibody Screen NEGATIVE 04/24/19 04/25/19 13:26 06:26 WBC 8.87 RBC 3.38 L Hgb 9.3 L Hct 28.7 L MCV 84.9 MCH 27.5 MCHC 32.4 RDW Std Deviation 43.2 RDW Coeff of Lakesha 14.1 Plt Count 113 L MPV 11.0 H Immature Gran % (Auto) 0.2 Neut % (Auto) 72.8 Lymph % (Auto) 14.3 Cuming % (Auto) 12.1 Eos % (Auto) 0.5 Baso % (Auto) 0.1 Immature Gran # (Auto) 0.02 Neut # (Auto) 6.46 Lymph # (Auto) 1.27 Cuming # (Auto) 1.07 H Eos # (Auto) 0.04 Baso # (Auto) 0.01 Cord ABG pH 7.27 Cord ABG pCO2 43 Cord ABG pO2 19.5 Cord ABG HCO3 19 L Cord ABG Base Excess -7.2 Cord ABG O2 Sat < 60.0 Cord VBG pH Cord VBG pCO2 Cord VBG pO2 Cord VBG HCO3 Cord VBG Base Excess Cord VBG O2 Sat Barometric Pressure 737.2 Blood Gas Comments KENYON Blood Type Antibody Screen Medications Administered Current Medications Acetaminophen (Ofirmev) 1,000 mg IV Q8 PRN PRN Reason: Pain Stop: 04/25/19 11:22 Benzocaine (Dermoplast Pain Relieving [place]) 1 appln EXT UD PRN PRN Reason: use on skin as needed Stop: 05/24/19 18:31 Bisacodyl (Dulcolax) 5 mg PO 2000 NANDO Stop: 04/25/19 20:01 Bisacodyl (Dulcolax) 10 mg SD PRN PRN PRN Reason: Constipation Stop: 05/26/19 13:52 Cocaine HCl (Supercream 0.870%) 1 gm EXT UD PRN PRN Reason: hemmorrhoidal inflammation Stop: 05/08/19 18:31 Diphenhydramine HCl (Benadryl) 25 mg IV QID PRN PRN Reason: Itching Stop: 05/25/19 05:22 Diphenhydramine HCl (Benadryl Capsule) 25 mg PO QID PRN PRN Reason: Itching Stop: 05/25/19 05:22 Docusate Sodium (Colace) 100 mg PO DAILY@08,21 NANDO Stop: 05/24/19 20:59 Last Admin: 04/24/19 20:56 Dose: 100 mg Documented by: Hydrocortisone (Anusol Hc) 25 mg SD BID PRN PRN Reason: Hemorrhoids Stop: 05/24/19 18:31 Promethazine HCl 25 mg/ Sodium (Chloride) 51 mls @ 204 mls/hr IV Q4H PRN PRN Reason: Nausea And Vomiting Stop: 05/25/19 05:22 Ibuprofen (Motrin) 600 mg PO Q4H PRN PRN Reason: Pain Stop: 05/24/19 18:31 Ketorolac Tromethamine (Toradol) 30 mg IV Q6H PRN PRN Reason: Pain Stop: 04/30/19 05:22 Magnesium Hydroxide (Milk Of Magnesia) 30 ml PO HS PRN PRN Reason: Constipation Stop: 05/24/19 18:31 Meperidine HCl (Demerol) 50 - 75 mg IV Q4H PRN PRN Reason: Pain Stop: 05/09/19 05:22 Ondansetron HCl (Zofran) 4 mg IV Q4H PRN PRN Reason: Nausea And Vomiting Stop: 05/25/19 05:22 Oxycodone/Acetaminophen (Percocet 5mg/325mg) 1 - 2 tab PO Q4H PRN PRN Reason: Pain Stop: 05/09/19 05:22 Prenat Multivit/[place]/Iron/Folic Ac ( Vitamin) 1 tab PO DAILY@08 NANDO Stop: 05/25/19 07:59 Sennosides (Senokot) 17.2 mg PO HS PRN PRN Reason: Constipation Stop: 05/24/19 18:31 Simethicone (Mylicon) 80 mg PO DAILY@08,13,17,21 NANDO Stop: 05/24/19 18:31 Last Admin: 04/24/19 20:57 Dose: 80 mg Documented by: Zolpidem Tartrate (Ambien) 5 mg PO HS PRN PRN Reason: Sleep Stop: 05/25/19 05:22 Resident Activity Tracking Resident Involvement: Resident Care Provided Care Provided: Adult Hospital Medicine
[2019-04-25] MEDS: SIMETHICONE 80 MG CHEW PO SCH ×5 (08:01→20:22)
[2019-04-25] MEDS: DOCUSATE SODIUM 100 MG CAP PO SCH ×2 (08:12→20:22)
[2019-04-25] MEDS: IBUPROFEN 600 MG TAB PO PRN ×2 (08:12→16:21)
[2019-04-25] MEDS: PRENATAL VITAMIN 1 TAB PO SCH (08:12)
[2019-04-25] MEDS: OXYCODONE/ACETAMINOPHEN 5mg/325mg TAB PO PRN ×2 (08:13→16:22)
--- NOTE | 2019-04-25 10:57 | Anesthesiology Progress Note ---
Date of Service April 25, 2019 Anesthesia Post Procedure Vital Signs Vital Signs: Temp Pulse Pulse Resp BP BP Pulse Ox 04/25/19 08:30 101 H 20 99/61 L 96 04/25/19 07:00 16 96 04/25/19 06:00 16 98 04/25/19 05:00 16 97 04/25/19 04:00 36.5 C 89 16 100/65 98 04/25/19 03:00 14 97 04/25/19 02:00 14 95 04/25/19 01:00 16 95 04/25/19 00:00 16 97 04/24/19 21:30 16 94 04/24/19 20:15 18 04/24/19 19:15 18 94 04/24/19 18:35 18 96 04/24/19 17:25 36.5 C 89 18 101/58 L 94 04/24/19 17:00 18 96 04/24/19 16:36 104 H 96 04/24/19 16:31 100 H 94 04/24/19 16:26 99 H 95 04/24/19 16:21 96 H 96 04/24/19 16:16 104 H 98 04/24/19 16:11 92 H 94 04/24/19 16:06 90 94 04/24/19 16:01 72 94 04/24/19 15:58 85 88/50 L 04/24/19 15:56 76 97 04/24/19 15:51 77 93 04/24/19 15:48 89 100/55 L 04/24/19 15:46 102 H 96 04/24/19 15:41 98 H 93 04/24/19 15:38 90 97/49 L 04/24/19 15:36 96 H 94 04/24/19 15:31 95 H 94 04/24/19 15:28 85 129/63 04/24/19 15:26 96 H 97 04/24/19 15:21 88 94 04/24/19 15:17 91 H 121/60 04/24/19 15:16 95 H 98 04/24/19 15:11 78 95 04/24/19 15:09 87 109/59 L 04/24/19 15:06 82 97 04/24/19 15:01 81 96 04/24/19 14:58 77 103/55 L 04/24/19 14:56 83 93 04/24/19 14:51 82 94 04/24/19 14:47 79 103/58 L 04/24/19 14:46 78 95 04/24/19 14:45 72 88 L 04/24/19 14:41 74 96 04/24/19 14:37 68 99/57 L 04/24/19 14:36 71 88 L 04/24/19 14:34 79 87 L 04/24/19 14:31 83 95 04/24/19 14:28 80 88/54 L 04/24/19 14:26 79 95 04/24/19 14:21 88 95 04/24/19 14:20 87 102/53 L 04/24/19 14:18 86 94 04/24/19 14:16 86 94 04/24/19 14:13 86 94 04/24/19 14:11 89 92 04/24/19 14:06 83 93 04/24/19 14:02 83 93/47 L 04/24/19 14:01 90 93 04/24/19 14:00 36.6 C 16 04/24/19 12:44 37.1 C 75 18 100/59 L Pain Intensity Lower Abdomen: Pain Intensity: 4 Transfer of Care Handoff Completed per policy Notes Mental Status: alert / awake / arousable and participated in evaluation Patient Amnestic to Procedure: Yes Nausea / Vomiting: adequately controlled Pain: adequately controlled Airway Patency, RR, SpO2: stable & adequate BP & HR: stable & adequate Hydration State: stable & adequate Neuraxial Anesthesia: was administered and sensory block resolved Anesthetic Complications: no major complications apparent (Pt states had severe pruritis post op, now resolved and no further complaints.)
[2019-04-25] MEDS ORDERED: bisacodyL 5 MG TABEC PO SCH (20:00)
[2019-04-26] MEDS: IBUPROFEN 600 MG TAB PO PRN ×3 (05:30→20:36)
[2019-04-26] MEDS: OXYCODONE/ACETAMINOPHEN 5mg/325mg TAB PO PRN ×3 (05:31→20:37)
--- NOTE | 2019-04-26 06:07 | Obstetrical Progress Note ---
Date of Service <Elsy Del Valle - Last Filed: 04/26/19 07:01> April 26, 2019 Assessment & Plan <Elsy Del Valle DO - Last Filed: 04/26/19 07:01> (1) Encounter for care and examination after delivery: 28 yo F POD #2 following delivery at 39w3d, with some lower abdominal pain otherwise doing well. C section delivery - POD #2. - Pain better controlled today. - Will continue routine care. Will discharge either later today or tomorrow pending patient's discussion with . - Following d/c will have f/u in 6 weeks. - Blood type O+, Rubella immune. Subjective <Elsy Del ValleDO - Last Filed: 04/26/19 07:01> Pamela is a 28 yo female ; POD # 2 following section delivery at 39w3d; doing well this AM and sitting in the chair in her room; some pain overnight but well controlled with PRN pain medications. Voiding well, passing gas but no BM; tolerating meals overnight, able to ambulate some within the room. Some persistent spotting this morning but improved from yesterday. Unsure if she wants to go home today, is going to discuss with her later in the morning but is nervous about going home where there are stairs and there are not hand rails to use the bathroom and motorized beds. 24 Hour I/Os: Intake: not recorded Output: 1750mL Review of Systems Constitutional: denies fever, chills, sweats, headache Respiratory: denies SOB, difficulty breathing Cardiac: denies CP, chest palpitations, chest pressure Breast: denies breast pain : denies dysuria Physical Exam <Elsy Butlertracy - Last Filed: 04/26/19 07:01> General: patient is alert and oriented, in NAD Cardiac: +S1/S2, no murmurs rubs or gallops Respiratory: lungs CTA b/l, anteriorly and posteriorly, no wheezes rales or rhonchi, no increased work of breathing, symmetric chest rise, no respiratory distress Abdomen: soft, NT, +bowel sounds Uterus: uterine fundus firm and palpable below the level of the umbilicus. Incision intact, non-tender, non-erythematous, no weeping from incision site Lower Extremities: no LE edema or swelling, no deep calf pain, Naman's sign negative b/l Results & Data <Elsy Del Valle, DO - Last Filed: 04/26/19 07:01> Vital Signs (Past 12 Hours) Vital Signs Temp Pulse Resp BP Pulse Ox 04/25/19 23:45 37.0 C 64 18 99/66 L 97 04/25/19 19:59 37.2 C 60 18 102/76 98 Laboratory Results Laboratory Results - last 24 hr 04/25/19 06:26 WBC 8.87 RBC 3.38 L Hgb 9.3 L Hct 28.7 L MCV 84.9 MCH 27.5 MCHC 32.4 RDW Std Deviation 43.2 RDW Coeff of Lakesha 14.1 Plt Count 113 L MPV 11.0 H Immature Gran % (Auto) 0.2 Neut % (Auto) 72.8 Lymph % (Auto) 14.3 [place] % (Auto) 12.1 Eos % (Auto) 0.5 Baso % (Auto) 0.1 Immature Gran # (Auto) 0.02 Neut # (Auto) 6.46 Lymph # (Auto) 1.27 [place] # (Auto) 1.07 H Eos # (Auto) 0.04 Baso # (Auto) 0.01 Medications Administered Current Medications Benzocaine (Dermoplast Pain Relieving [place]) 1 appln EXT UD PRN PRN Reason: use on skin as needed Stop: 05/24/19 18:31 Bisacodyl (Dulcolax) 10 mg [place] PRN PRN PRN Reason: Constipation Stop: 05/26/19 13:52 Cocaine HCl (Supercream 0.870%) 1 gm EXT UD PRN PRN Reason: hemmorrhoidal inflammation Stop: 05/08/19 18:31 Diphenhydramine HCl (Benadryl) 25 mg IV QID PRN PRN Reason: Itching Stop: 05/25/19 05:22 Diphenhydramine HCl (Benadryl Capsule) 25 mg PO QID PRN PRN Reason: Itching Stop: 05/25/19 05:22 Docusate Sodium (Colace) 100 mg PO DAILY@08,21 NANDO Stop: 05/24/19 20:59 Last Admin: 04/25/19 20:22 Dose: 100 mg Documented by: Hydrocortisone (Anusol Hc) 25 mg [place] BID PRN PRN Reason: Hemorrhoids Stop: 05/24/19 18:31 Promethazine HCl 25 mg/ Sodium (Chloride) 51 mls @ 204 mls/hr IV Q4H PRN PRN Reason: Nausea And Vomiting Stop: 05/25/19 05:22 Ibuprofen (Motrin) 600 mg PO Q4H PRN PRN Reason: Pain Stop: 05/24/19 18:31 Last Admin: 04/26/19 05:30 Dose: 600 mg Documented by: Ketorolac Tromethamine (Toradol) 30 mg IV Q6H PRN PRN Reason: Pain Stop: 04/30/19 05:22 Magnesium Hydroxide (Milk Of Magnesia) 30 ml PO HS PRN PRN Reason: Constipation Stop: 05/24/19 18:31 Meperidine HCl (Demerol) 50 - 75 mg IV Q4H PRN PRN Reason: Pain Stop: 05/09/19 05:22 Ondansetron HCl (Zofran) 4 mg IV Q4H PRN PRN Reason: Nausea And Vomiting Stop: 05/25/19 05:22 Oxycodone/Acetaminophen (Percocet 5mg/325mg) 1 - 2 tab PO Q4H PRN PRN Reason: Pain Stop: 05/09/19 05:22 Last Admin: 04/26/19 05:31 Dose: 1 tab Documented by: Prenat Multivit/Control Room Technician/Iron/Folic Ac ( Vitamin) 1 tab PO DAILY@08 NANDO Stop: 05/25/19 07:59 Last Admin: 04/25/19 08:12 Dose: 1 tab Documented by: Sennosides (Senokot) 17.2 mg PO HS PRN PRN Reason: Constipation Stop: 05/24/19 18:31 Simethicone (Mylicon) 80 mg PO DAILY@08,13,17,21 NANDO Stop: 05/24/19 18:31 Last Admin: 04/25/19 20:22 Dose: 80 mg Documented by: Zolpidem Tartrate (Ambien) 5 mg PO HS PRN PRN Reason: Sleep Stop: 05/25/19 05:22 <Augie Wade Jr, MD, FACOG - Last Filed: 04/26/19 08:23> Co-Signing Physician Notes Resident Physician Supervision Note: I was present with Dr. Reid during the history and exam. I discussed the case with the resident and agree with the findings and plan as documented in the note. Any exceptions or clarifications are listed here: Routine care, doing well. Documented By: Augie Wade Jr, MD, FACOG Resident Activity Tracking <Elsy Del Valle, - Last Filed: 04/26/19 07:01> Resident Involvement: Resident Care Provided Care Provided: Adult [facility] Medicine
[2019-04-26 07:33] LABS: Hematocrit (blood only) 30.8 % (37-47); Hemoglobin 9.8 g/dL (12.0-16.0)
[2019-04-26] MEDS: SIMETHICONE 80 MG CHEW PO SCH ×4 (08:07→20:36)
[2019-04-26] MEDS: DOCUSATE SODIUM 100 MG CAP PO SCH ×2 (08:07→20:36)
[2019-04-26] MEDS: PRENATAL VITAMIN 1 TAB PO SCH (08:07)
[2019-04-26] MEDS ORDERED: bisacodyL 10 MG SUPP PR PRN (13:53)
[2019-04-26 16:39] VITALS: O2SAT 96
[2019-04-26 23:38] VITALS: TEMP 97.9
--- NOTE | 2019-04-27 06:49 | Obstetrical Progress Note ---
Date of Service <lEsy Del Valle - Last Filed: 04/27/19 06:51> April 27, 2019 Assessment & Plan <Elsy Del Valle - Last Filed: 04/27/19 06:51> (1) Encounter for care and examination after delivery: 28 yo F POD #3 following delivery at 39w3d, with some lower abdominal pain otherwise doing well. C section delivery - POD #3 - For discharge today. Discussed discharge instructions and answered all patient questions. - Following d/c will have f/u in 6 weeks. - Blood type O+, Rubella immune. Subjective <Elsy Del Valle - Last Filed: 04/27/19 06:51> Pamela is a 28 yo female ; POD # 3 following section delivery at 39w3d; doing well this AM; no abdominal cramping/pain; voiding well, passing gas but no BM; tolerating meals overnight, able to ambulate some within the room. Some persistent spotting this morning but improved from yesterday. 24 Hour I/Os: not recorded Review of Systems Constitutional: denies fever, chills, sweats, headache Respiratory: denies SOB, difficulty breathing Cardiac: denies CP, chest palpitations, chest pressure Breast: denies breast pain : denies dysuria Physical Exam <Elsy Del Valle - Last Filed: 04/27/19 06:51> General: patient is alert and oriented, in NAD Cardiac: +S1/S2, no murmurs rubs or gallops Respiratory: lungs CTA b/l, anteriorly and posteriorly, no wheezes rales or rhonchi, no increased work of breathing, symmetric chest rise, no respiratory distress Abdomen: soft, NT, +bowel sounds Uterus: uterine fundus firm and palpable below the level of the umbilicus. Incision intact, non-tender, non-erythematous, no weeping from incision site Lower Extremities: no LE edema or swelling, no deep calf pain, Naman's sign negative b/l Results & Data <Elsy Del Valle - Last Filed: 04/27/19 06:51> Vital Signs (Past 12 Hours) Vital Signs Temp Pulse Resp BP 04/26/19 23:31 36.6 C 72 18 98/62 L Laboratory Results Laboratory Results - last 24 hr 04/26/19 07:18 Hgb 9.8 L Hct 30.8 L Medications Administered Current Medications Benzocaine (Dermoplast Pain Relieving [place]) 1 appln EXT UD PRN PRN Reason: use on skin as needed Stop: 05/24/19 18:31 Bisacodyl (Dulcolax) 10 mg [place] PRN PRN PRN Reason: Constipation Stop: 05/26/19 13:52 Cocaine HCl (Supercream 0.870%) 1 gm EXT UD PRN PRN Reason: hemmorrhoidal inflammation Stop: 05/08/19 18:31 Diphenhydramine HCl (Benadryl) 25 mg IV QID PRN PRN Reason: Itching Stop: 05/25/19 05:22 Diphenhydramine HCl (Benadryl Capsule) 25 mg PO QID PRN PRN Reason: Itching Stop: 05/25/19 05:22 Docusate Sodium (Colace) 100 mg PO DAILY@08,21 NANDO Stop: 05/24/19 20:59 Last Admin: 04/26/19 20:36 Dose: 100 mg Documented by: Hydrocortisone (Anusol Hc) 25 mg [place] BID PRN PRN Reason: Hemorrhoids Stop: 05/24/19 18:31 Promethazine HCl 25 mg/ Sodium (Chloride) 51 mls @ 204 mls/hr IV Q4H PRN PRN Reason: Nausea And Vomiting Stop: 05/25/19 05:22 Ibuprofen (Motrin) 600 mg PO Q4H PRN PRN Reason: Pain Stop: 05/24/19 18:31 Last Admin: 04/26/19 20:36 Dose: 600 mg Documented by: Ketorolac Tromethamine (Toradol) 30 mg IV Q6H PRN PRN Reason: Pain Stop: 04/30/19 05:22 Magnesium Hydroxide (Milk Of Magnesia) 30 ml PO HS PRN PRN Reason: Constipation Stop: 05/24/19 18:31 Meperidine HCl (Demerol) 50 - 75 mg IV Q4H PRN PRN Reason: Pain Stop: 05/09/19 05:22 Ondansetron HCl (Zofran) 4 mg IV Q4H PRN PRN Reason: Nausea And Vomiting Stop: 05/25/19 05:22 Oxycodone/Acetaminophen (Percocet 5mg/325mg) 1 - 2 tab PO Q4H PRN PRN Reason: Pain Stop: 05/09/19 05:22 Last Admin: 04/26/19 20:37 Dose: 1 tab Documented by: Andree Multivit/Product Management Specialist/Iron/Folic Ac ( Vitamin) 1 tab PO DAILY@08 NANDO Stop: 05/25/19 07:59 Last Admin: 04/26/19 08:07 Dose: 1 tab Documented by: Sennosides (Senokot) 17.2 mg PO HS PRN PRN Reason: Constipation Stop: 05/24/19 18:31 Simethicone (Mylicon) 80 mg PO DAILY@08,13,17,21 NANDO Stop: 05/24/19 18:31 Last Admin: 04/26/19 20:36 Dose: 80 mg Documented by: Zolpidem Tartrate (Ambien) 5 mg PO HS PRN PRN Reason: Sleep Stop: 05/25/19 05:22 <Meenu Sanchez MD, FACOG - Last Filed: 04/27/19 08:01> Co-Signing Physician Notes Resident Physician Supervision Note: I was present with Dr. Del Valle during the history and exam. I discussed the case with the resident and agree with the findings and plan as documented in the note. Any exceptions or clarifications are listed here: doing well, ready to go home, instructions reviewed, denied questions. checked on papdmp and no issues identified. Documented By: Meenu Sanchez MD, FACOG Resident Activity Tracking <Elsy Del Valle DO - Last Filed: 04/27/19 06:51> Resident Involvement: Resident Care Provided Care Provided: OB Delivery
[2019-04-27] MEDS: SIMETHICONE 80 MG CHEW PO SCH (07:50)
[2019-04-27] MEDS: OXYCODONE/ACETAMINOPHEN 5mg/325mg TAB PO PRN (07:52)
[2019-04-27] MEDS: DOCUSATE SODIUM 100 MG CAP PO SCH (07:52)
[2019-04-27] MEDS: PRENATAL VITAMIN 1 TAB PO SCH (07:52)
[2019-04-27] MEDS: IBUPROFEN 600 MG TAB PO PRN (07:52)
[2019-04-27 08:57] VITALS: BP 112/70; PULSE 84
--- NOTE | 2019-04-28 22:34 | Discharge Summary ---
Date of Service April 28, 201904/24 repeat c/s Admission Exam (Per Admitting) Constitutional WD/WN, vitals as above Respiratory normal respiratory effort, lungs clear to auscultation Cardiovascular RRR, no murmur, no edema Gastrointestinal (Abdomen) normal bowel sounds, soft, nontender, no hepatosplenomegaly Genitourinary Speculum/Bimanual Exam: normal appearance of the vagina OB Exam Abdomen: + fundal height (Term), + heart tones (Pos) and + vertex Discharge Data Procedures Performed Operation Date: 04/24/19 10:20 Actual Procedures p Section in LD - J. Darrick Kruger MD, FACOG Hospital Course (1) History of : met criteria on day 3 and team discharged patient
== END 2019-04-27 11:15 | disposition home or self-care (01) | DRG 788 ==
LOC: 4S1 07:57 → EDSTATUS 10:20 → 4S2 17:25